=== PATIENT | male | born 1995 | race Hispanic/Latino ===

== ENCOUNTER 2020-04-25 23:23 | Emergency (ER) | payer SELFPAY ==
[2020-04-25] MEDS ORDERED: LORazepam 2 MG/ML VIAL IM ONE (23:59)
[2020-04-25] MEDS ORDERED: diphenhydrAMINE 50 MG/ML VIAL IM ONE (23:59)
--- NOTE | 2020-04-26 00:01 | Emergency Department Report ---
ED Psych HPI - General Chief Complaint: Psych Stated Complaint: ALTERED Time Seen by Provider: 04/25/20 23:52 Source: patient Mode of arrival: Ambulatory Limitations: Altered Mental Status - History of Present Illness Initial Comments: Patient is a 24-year-old male that presents emergency room with complaints of I did 16 8 balls. Patient states he did cocaine. Patient states he is plays billiards a lot. patient states he thinks it was not cocaine but rather he played 16 games of billiards. Patient states that he was playing pool with jaw biting. Patient states that he was swimming in a pool. Patient states that he has been running marathons lately. Patient states he is not able to sit still because he is talking to God. Patient states Aman is 1 of his friends. MD Complaint: altered mental status -: Sudden Associated Psychiatric Symptoms: racing thoughts, auditory hallucinations, visual hallucinations, delusions History of same: Yes Quality: constant Improves With: none Worsens With: none Context: significant life stressor Associated Symptoms: denies other symptoms. denies: confusion, headache, shortness of breath, nausea, vomiting, syncope, insomnia Treatments Prior to Arrival: none - Related Data Previous Rx's Medication Instructions Recorded Last Taken Type haloperidoL [Haldol] 2 mg PO BID #60 tablet 04/27/20 Unknown Rx Allergies Allergy/AdvReac Type Severity Reaction Status Date / Time No Known Allergies Allergy Unverified 04/25/20 23:35 ED Review of Systems ROS: Stated complaint: ALTERED Other details as noted in HPI Constitutional: denies: chills, fever Eyes: denies: eye pain, eye discharge, vision change ENT: denies: ear pain, throat pain Respiratory: denies: cough, shortness of breath, wheezing Cardiovascular: denies: chest pain, palpitations Endocrine: no symptoms reported Gastrointestinal: denies: abdominal pain, nausea, diarrhea Genitourinary: denies: urgency, dysuria Musculoskeletal: denies: back pain, joint swelling, arthralgia Skin: denies: rash, lesions Neurological: denies: headache, weakness, paresthesias Psychiatric: auditory hallucinations, visual hallucinations. denies: anxiety, depression, homicidal thoughts, suicidal thoughts Hematological/Lymphatic: denies: easy bleeding, easy bruising ED Past Medical Hx - Past Medical History Previous Medical History?: No - Surgical History Past Surgical History?: No - Family History Family history: no significant - Social History Smoking Status: Unknown if ever smoked Substance Use Type: Cocaine - Medications Home Medications: Home Medications Medication Instructions Recorded Confirmed Last Taken Type haloperidoL [Haldol] 2 mg PO BID #60 tablet 04/27/20 Unknown Rx ED Physical Exam - General Limitations: No Limitations General appearance: alert, in no apparent distress - Head Head exam: Present: atraumatic, normocephalic - Eye Eye exam: Present: normal appearance - ENT ENT exam: Present: mucous membranes moist - Neck Neck exam: Present: normal inspection - Respiratory Respiratory exam: Present: normal lung sounds bilaterally. Absent: respiratory distress - Cardiovascular Cardiovascular Exam: Present: regular rate, normal rhythm. Absent: systolic murmur, diastolic murmur, rubs, gallop - GI/Abdominal GI/Abdominal exam: Present: soft, normal bowel sounds - Rectal Rectal exam: Present: deferred - Extremities Exam Extremities exam: Present: normal inspection - Back Exam Back exam: Present: normal inspection - Neurological Exam Neurological exam: Present: alert, oriented X3 - Psychiatric Psychiatric exam: Present: manic - Expanded Psychiatric Exam Expanded Focused psych exam: Present: pressured speech, internal stimuli, delusional, restlessness, flight of ideas, loose associations - Skin Skin exam: Present: warm, dry, intact, normal color. Absent: rash ED Course Vital Signs 04/25/20 04/25/20 04/26/20 23:31 23:35 02:00 Temperature 97.9 F 98.2 F Pulse Rate 81 71 Respiratory 18 20 18 Rate Blood Pressure 129/62 Blood Pressure 103/48 [Left] O2 Sat by Pulse 100 100 97 Oximetry 04/26/20 04/26/20 04/26/20 09:27 09:31 09:34 Temperature 97.8 F Pulse Rate 87 Respiratory 18 Rate Blood Pressure 105/59 Blood Pressure 108/64 [Left] O2 Sat by Pulse 95 94 100 Oximetry 04/26/20 04/26/20 04/27/20 17:08 20:40 01:36 Temperature 98.4 F 97.9 F 98.0 F Pulse Rate 66 54 L 59 L Respiratory 17 18 20 Rate Blood Pressure Blood Pressure 120/60 122/52 120/58 [Left] O2 Sat by Pulse 99 98 96 Oximetry 04/27/20 04/27/20 03:40 09:29 Temperature 97.9 F Pulse Rate 87 Respiratory 18 19 Rate Blood Pressure Blood Pressure 122/76 [Left] O2 Sat by Pulse 97 Oximetry - Reevaluation(s) Reevaluation #1: Patient is hyperverbal and exhibiting acute psychosis symptoms. Patient is wandering everywhere. Patient is difficult to redirect. Patient will be given medications. Patient will have labs done. Patient placed on a ER hold. Patient also placed on 1013. 04/26/20 00:01 ED Medical Decision Making - Lab Data Result diagrams: 04/26/20 14:44 04/26/20 00:11 - Medical Decision Making Patient is a 24-year-old male that presents emergency room with multiple psychiatric complaints. Patient's initial exam done. Patient showed to be hyperverbal and in no acute psychosis. Patient placed on a 1013 in the ER hold. Patient was given Geodon, Ativan and Benadryl for acute psychosis and agitat ion and patient was roaming the halls. Unable to redirect patient, so the patient was given these medications. Patient responded well to the medication. Patient had labs done. Patient's labs are essentially unremarkable except for acute alcohol intoxication.. Patient is medically cleared. Patient's final disposition will come from our psychiatry mental health team. - Differential Diagnosis Acute psychosis, delusions, hyperverbal. Critical care attestation.: If time is entered above; I have spent that time in minutes in the direct care o f this critically ill patient, excluding procedure time. ED Disposition Clinical Impression: Delusion, Hallucination, Acute psychosis Acute alcohol intoxication Qualifiers: Complication of substance-induced condition: with unspecified complication Qualified Code(s): F10.929 - Alcohol use, unspecified with intoxication, unspecified Disposition: DC-01 TO HOME OR SELFCARE Is pt being admited?: No Does the pt Need Aspirin: No Condition: Stable Instructions: Alcohol Intoxication (ED) Additional Instructions: Outpatient COMMUNITY Behavioral Health Resources: [facility] ([facility]) [address] [place] [address] / Thursday thru Thursday - 8am - 5pm [facility] Address: [address] [place] [id number] Thursday thru Thursday- 7am-2pm [facility] Address: [address] [place] [id number] Thursday thru Thursday: 8:30AM-5PM SUBSTANCE ABUSE PROGRAMS: [facility]: Location: [place], [place] [facility] Address: [address] [place] [address] [facility]: Address: [address] [place] [id number] [facility]: Address: [address] [place] [address] [facility]: Address: [address] [place] [address] [facility] Address: [address] [place] [address]. The [facility] is to take chronically homeless men and help them overcome their barriers, change them as human beings,making them productive and self- sufficient individuals. Each [facility] participant is housed at our facility for up to a year while they participate in transitional work (earning $7.40/hr for 30+ hours per week). All participants renounce dependency and remain drug and alcohol free. Personal support, case management, and workforce training is offered throughout the program. We also provide AA/NA Classes, GED classes, support in obtaining a lease purchase driver's licenses,help setting up a bank account,and life skill preparation courses. IF A MAN IS COMMITTED TO BEING CLEAN, TO ADDRESSING THE PAST, AND TO WORKING, WE WILL HELP HIM GET A [employer]ATE SUPERVISOR JOB, TRANSPORTATION AND PERMANENT HOUSING WITHIN A YEAR. [facility] [address] [place] [address] [email or web address] CRISIS RESOURCES MD Crisis Line: Suicide Prevention Line: Crisis Text Line: Text START to 623302 Emergency: 911 Prescriptions: haloperidoL [Haldol] 2 mg PO BID #60 tablet Referrals: PRIMARY CARE, [Primary Care Provider] - 3-5 Days Time of Disposition: 00:23
[2020-04-26 00:41] LABS: Basophils # (Auto) 0.1 K/mm3 (0.0-0.1); Basophils % (Auto) 0.9 % (0.0-1.8); Eosinophils # (Auto) 0.1 K/mm3 (0.0-0.4); Eosinophils % (Auto) 1.1 % (0.0-4.3); Hematocrit 37.5 % (35.5-45.6); Hemoglobin 13.2 gm/dl (11.8-15.2); Lymphocytes # (Auto) 3.3 K/mm3 (1.2-5.4); Lymphocytes % (Auto) 27.3 % (13.4-35.0); Mean Corpuscular HGB Conc 35 % (32-34); Mean Corpuscular Volume 86 fl (84-94); Monocytes # (Auto) 0.8 K/mm3 (0.0-0.8); Monocytes % (Auto) 6.4 % (0.0-7.3); Platelet Count 323 K/mm3 (140-440); Red Blood Count 4.36 M/mm3 (3.65-5.03); Red Cell Distribution Width 14.3 % (13.2-15.2)
[2020-04-26] MEDS: ZIPRASIDONE MESYLATE 20 MG VIAL IM ONE ×2 (00:55→01:47)
[2020-04-26 00:57] LABS: Alanine Aminotransferase 42 units/L (7-56); Albumin 4.3 g/dL (3.9-5); BUN/Creatinine Ratio 18; Blood Urea Nitrogen 18 mg/dL (9-20); Calcium 9.2 mg/dL (8.4-10.2); Hemolysis Index 2
[2020-04-26 02:36] LABS: Bilirubin,Urine NEG (Negative); Blood,Urine NEG (Negative); Color,Urine Straw (Yellow); Mucus,Urine FEW /HPF; Protein,Urine <15 mg/dL mg/dL (Negative); RBC,Urine < 1.0 /HPF (0.0-6.0)
[2020-04-26 02:44] LABS: WBC,Urine < 1.0 /HPF (0.0-6.0)
[2020-04-26 03:02] LABS: Amphetamine Screen,Urine PRESUMPTIVE NEGATIVE; Benzodiazepines Screen,Urine PRESUMPTIVE NEGATIVE; Cannabinoid Screen,Urine PRESUMPTIVE NEGATIVE; Cocaine Screen,Urine PRESUMPTIVE NEGATIVE; Methadone Screen,Urine PRESUMPTIVE NEGATIVE; Opiate Screen,Urine PRESUMPTIVE NEGATIVE
[2020-04-26 14:56] LABS: Basophils # (Auto) 0.1 K/mm3 (0.0-0.1); Basophils % (Auto) 0.8 % (0.0-1.8); Eosinophils # (Auto) 0.2 K/mm3 (0.0-0.4); Eosinophils % (Auto) 2.3 % (0.0-4.3); Hematocrit 36.6 % (35.5-45.6); Hemoglobin 12.3 gm/dl (11.8-15.2); Lymphocytes # (Auto) 2.5 K/mm3 (1.2-5.4); Lymphocytes % (Auto) 35.1 % (13.4-35.0); Mean Corpuscular HGB Conc 34 % (32-34); Mean Corpuscular Volume 87 fl (84-94); Monocytes # (Auto) 0.7 K/mm3 (0.0-0.8); Monocytes % (Auto) 9.1 % (0.0-7.3); Platelet Count 297 K/mm3 (140-440); Red Blood Count 4.21 M/mm3 (3.65-5.03); Red Cell Distribution Width 14.1 % (13.2-15.2)
[2020-04-27 09:30] VITALS: BP 122/76
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
== END 2020-04-27 15:35 | disposition home or self-care (01) ==
LOC: ED 23:23
DX: F22 Delusional disorders (principal); F23 Brief psychotic disorder; F10.929 Alcohol use, unspecified with intoxication, unspecified; F14.90 Cocaine use, unspecified, uncomplicated; Z79.899 Other long term (current) drug therapy
CPT/HCPCS: 36415; 80053; 80307; 81001; 85025; 96372; 99284; J1200; J2060; J3486; 80320; G0480